=== PATIENT | male | born 1985 | race Caucasian/White ===

== ENCOUNTER 2017-04-13 19:11 | Emergency (ER) | payer OTHER ==
[2017-04-13 19:19] VITALS: TEMP 98.8
--- NOTE | 2017-04-13 19:47 | EDPHY ---
H & P Stated Complaint: c/o intermittent L sided cp x several weeks, pt says more consitent x 2 day Time Seen by Provider: 04/13/17 19:46 HPI/ROS: CHIEF COMPLAINT: Left-sided chest pain HISTORY OF PRESENT ILLNESS: The patient presents to the ED with several weeks of intermittent left-sided chest pain. The patient states that his symptoms initially were quite sporadic occurring several times a day lasting seconds at a time. Over the past several days he has developed a mild left-sided pleuritic chest pain. The patient denies any exertional chest pain. He denies asymmetric calf pain or swelling. The patient has no significant past medical history. The patient did have some dental work done approximately 2 weeks ago. He does have some intermittent pain in his teeth with the symptoms. The patient denies any significant family history of heart disease. The patient denies cough, congestion or difficulty breathing. The patient denies additional acute complaints. REVIEW OF SYSTEMS: A comprehensive 10 point review of systems is otherwise negative aside from elements mentioned in the history of present illness. Source: Patient Exam Limitations: No limitations - Medical/Surgical History Hx Asthma: No Hx Chronic Respiratory Disease: No Hx Diabetes: No Hx Cardiac Disease: No Hx Renal Disease: No Hx Cirrhosis: No Hx Alcoholism: No Hx HIV/AIDS: No Hx Splenectomy or Spleen Trauma: No Other PMH: adhd - Social History Smoking Status: Never smoked - Physical Exam Exam: General Appearance: Alert, no distress Eyes: Pupils equal and round no pallor or injection ENT, Mouth: Mucous membranes moist Respiratory: There are no retractions, lungs are clear to auscultation Cardiovascular: Regular rate and rhythm Gastrointestinal: Abdomen is soft and nontender, no masses, bowel sounds normal Neurological: A&O, normal motor function, normal sensory exam, normal cranial nerves Skin: Warm and dry, no rashes Musculoskeletal: Neck is supple nontender Extremities: symmetrical, full range of motion Psychiatric: Patient is oriented X 3, there is no agitation Constitutional: Initial Vital Signs Temperature (C) 37.1 C 04/13/17 19:16 Heart Rate 70 04/13/17 19:16 Respiratory Rate 16 04/13/17 19:16 Blood Pressure 136/90 H 04/13/17 19:16 O2 Sat (%) 96 04/13/17 19:16 O2 Delivery Mode Room Air Allergies/Adverse Reactions: No Known Allergies Allergy (Unverified 04/13/17 19:19) Home Medications: Medication Instructions Recorded Concerta 04/13/17 Ritalin 5mg (*) 04/13/17 Medical Decision Making - Diagnostics EKG Interpretation: EKG: Complete interpretation has been separately recorded in the [facility] archive. Summary impression: Sinus rhythm, no ST segment elevation or depression noted. Imaging Results: Imaging Impressions Chest X-Ray 04/13/17 21:01 IMPRESSION: Normal chest x-ray. Chest x-ray PA lateral: Images reviewed by myself, negative for pneumothorax, rib fracture or intrathoracic abnormality. Formal interpretation by Radiology pending. ED Course/Re-evaluation: The patient presents to the ED for evaluation of 2 weeks of atypical chest pain. Over the past several days he has developed some mild pleurisy. The patient has no risk factors for PE or DVT. The patient's D-dimer is negative which I feel adequately excludes pulmonary embolism. In the emergency department, the patient is noted to have a normal EKG without pericarditis or myocarditis. The patient's troponin is within normal limits. The patient's chest x-ray demonstrates no intrathoracic abnormality or evidence of a pneumothorax. At this point time I do feel the patient can manage his symptoms with NSAIDs as an outpatient. I would like the patient to return to the emergency department for any markedly worsening symptoms, exertional chest pain , fever, cough or the development of a rash. Differential Diagnosis: Differential diagnosis considered includes acute coronary syndrome, pulmonary embolism, pneumothorax, pleurisy, costochondritis - Data Points Laboratory Results: Laboratory Results 04/13/17 20:30 04/13/17 20:30 04/13/17 04/13/17 04/13/17 20:30 20:30 20:30 WBC 4.52 10^3/uL 10^3/uL (3.80-9.50) RBC 5.16 10^6/uL 10^6/uL (4.40-6.38) Hgb 16.5 g/dL g/dL (13.7-17.5) Hct 45.8 % % (40.0-51.0) MCV 88.8 fL fL (81.5-99.8) MCH 32.0 pg pg (27.9-34.1) MCHC 36.0 g/dL g/dL (32.4-36.7) RDW 11.8 % % (11.5-15.2) Plt Count 186 10^3/uL 10^3/uL (150-400) MPV 9.3 fL fL (8.7-11.7) Neut % (Auto) 54.2 % % (39.3-74.2) Lymph % (Auto) 34.3 % % (15.0-45.0) [place] % (Auto) 9.1 % % (4.5-13.0) Eos % (Auto) 0.9 % % (0.6-7.6) Baso % (Auto) 1.1 % % (0.3-1.7) Nucleat RBC Rel Count 0.0 % % (0.0-0.2) Absolute Neuts (auto) 2.45 10^3/uL 10^3/uL (1.70-6.50) Absolute Lymphs (auto) 1.55 10^3/uL 10^3/uL (1.00-3.00) Absolute Monos (auto) 0.41 10^3/uL 10^3/uL (0.30-0.80) Absolute Eos (auto) 0.04 10^3/uL 10^3/uL (0.03-0.40) Absolute Basos (auto) 0.05 10^3/uL 10^3/uL (0.02-0.10) Absolute Nucleated RBC 0.00 10^3/uL 10^3/uL (0-0.01) Immature Gran % 0.4 % % (0.0-1.1) Immature Gran # 0.02 10^3/uL 10^3/uL (0.00-0.10) D-Dimer < 0.27 ug/mLFEU ug/mLFEU (0.00-0.50) Sodium 140 mEq/L mEq/L (134-144) Potassium 3.9 mEq/L mEq/L (3.5-5.2) Chloride 102 mEq/L mEq/L (97-110) Carbon Dioxide 23 mEq/l mEq/l (22-31) Anion Gap 15 mEq/L mEq/L (8-16) BUN 14 mg/dL mg/dL (7-23) Creatinine 0.8 mg/dL mg/dL (0.7-1.3) Estimated GFR > 60 Glucose 87 mg/dL mg/dL (70-100) Calcium 9.7 mg/dL mg/dL (8.5-10.4) Troponin I < 0.012 ng/mL ng/mL (0.000-0.034) TSH Pending Departure - Departure Disposition: Home, Routine, Self-Care Clinical Impression: Chest pain Condition: Good Instructions: Chest Pain (ED) Additional Instructions: 1. Take Ibuprofen or Motrin 600 mg by mouth three times a day. 2. Please return to the emergency department for any worsening chest pain, exertional chest pain, fever, difficulty breathing or other concerns. 3. Please schedule a follow-up appointment with your primary care provider or the infrastructure design engineer you have been referred to for any symptoms which persists past 2-3 days. Referrals: EVA VICENTE [Other] - As per Instructions Mikhail Higgins MD [Medical Doctor] - As per Instructions
--- NOTE | 2017-04-13 20:04 | CPEKG ---
Heart Rate: 62 RR Interval: 968 P-R Interval: 160 QRSD Interval: 88 QT Interval: 388 QTC Interval: 394 P [place]: 32 QRS [place]: 33 T Wave [place]: 20 EKG Severity - NORMAL ECG - EKG Impression: SINUS RHYTHM Electronically Signed By: Danilo Porter 13-Apr-2017 21:03:27
[2017-04-13 20:40] LABS: % IMMATURE GRANULYOCYTES 0.4 % (0.0-1.1); ABSOLUTE IMMATURE GRANULOCYTES 0.02 10^3/uL (0.00-0.10); ADD DIFF? NO; ADD MORPH? NO; ADD SCAN? NO; ATYPICAL LYMPHOCYTE FLAG 10 (0-99); FRAGMENT RBC FLAG 0 (0-99); HEMATOCRIT 45.8 % (40.0-51.0); HEMOGLOBIN 16.5 g/dL (13.7-17.5); LEFT SHIFT FLG 0 (0-99); LIPEMIA HEMOLYSIS FLAG 90 (0-99); MEAN CELL VOLUME 88.8 fL (81.5-99.8); MEAN PLATELET VOLUME 9.3 fL (8.7-11.7); PLATELET CLUMPS FLAG 20 (0-99); PLATELET COUNT 186 10^3/uL (150-400); RED BLOOD CELL COUNT 5.16 10^6/uL (4.40-6.38); RED CELL DISTRIBUTION WIDTH 11.8 % (11.5-15.2)
[2017-04-13 20:56] LABS: ANION GAP 15 mEq/L (8-16); CALCIUM 9.7 mg/dL (8.5-10.4); CARBON DIOXIDE 23 mEq/l (22-31); CHLORIDE 102 mEq/L (97-110); CREATININE 0.8 mg/dL (0.7-1.3); GLOMERULAR FILTRATION RATE > 60; GLUCOSE 87 mg/dL (70-100); POTASSIUM 3.9 mEq/L (3.5-5.2); SODIUM 140 mEq/L (134-144)
[2017-04-13] MEDS ORDERED: KETOROLAC 30 MG/1 ML SDV IVP ONE (21:04)
[2017-04-13 21:06] LABS: TROPONIN I < 0.012 ng/mL (0.000-0.034)
[2017-04-13 21:30] VITALS: BP 118/76; PULSE 71; RESP 18; O2SAT 95
== END 2017-04-13 21:30 | disposition home or self-care (01) ==
DX: R07.9 Chest pain, unspecified (principal)
CPT/HCPCS: 96374; J1885

== ENCOUNTER 2019-01-11 14:13 | Emergency (ER) | payer OTHER ==
--- NOTE | 2019-01-11 14:25 | EDPHY ---
H & P Stated Complaint: abd bloating Time Seen by Provider: 01/11/19 14:24 HPI/ROS: CHIEF COMPLAINT: Upper abdominal pain, bloating, loose stool HISTORY OF PRESENT ILLNESS: The patient presents to the ED with a several day history of increasing upper abdominal pain which is worsened with eating. The patient reports associated loose stool and bloating. The patient had been seen at urgent care prior to his referral to the emergency department he was given a GI cocktail with some improvement of his symptoms. The patient denies significant alcohol or NSAID usage. He denies any recent travel outside the [place]. The patient denies any melena. The patient denies prior history of GI distress. He denies any respiratory symptoms. He complains of mild epigastric and left upper quadrant pain currently. REVIEW OF SYSTEMS: A comprehensive 10 point review of systems is otherwise negative aside from elements mentioned in the history of present illness. Source: Patient Exam Limitations: No limitations - Personal History Current Tetanus/Diphtheria Vaccine: Yes Current Tetanus Diphtheria and Acellular Pertussis (TDAP): Yes - Medical/Surgical History Hx Asthma: No Hx Chronic Respiratory Disease: No Hx Diabetes: No Hx Cardiac Disease: No Hx Renal Disease: No Hx Cirrhosis: No Hx Alcoholism: No Hx HIV/AIDS: No Hx Splenectomy or Spleen Trauma: No Other PMH: adhd - Social History Smoking Status: Never smoked - Physical Exam Exam: General Appearance: Alert, no distress Eyes: Pupils equal and round no pallor or injection ENT, Mouth: Mucous membranes moist Respiratory: There are no retractions, lungs are clear to auscultation Cardiovascular: Regular rate and rhythm Gastrointestinal: Minimal epigastric tenderness to palpation, no peritoneal signs Neurological: 5/5 strength all 4 extremities Skin: Warm and dry, no rashes Musculoskeletal: Neck is supple nontender Extremities: symmetrical, full range of motion Constitutional: Initial Vital Signs Temperature (C) 37.1 C 01/11/19 14:20 Heart Rate 77 01/11/19 14:20 Respiratory Rate 16 01/11/19 14:20 Blood Pressure 125/87 H 01/11/19 14:20 O2 Sat (%) 95 01/11/19 14:20 O2 Delivery Mode Room Air Allergies/Adverse Reactions: No Known Allergies Allergy (Unverified 01/11/19 14:20) Home Medications: Medication Instructions Recorded [facility] 04/13/17 Medical Decision Making - Diagnostics Imaging Results: Imaging Impressions Abdomen Ultrasound 01/11/19 14:30 Impression: Cholecystitis with either an adherent stone or 4 mm gallbladder polyp. Results called to Dr. Valentín Porter at 3:03 PM ED Course/Re-evaluation: The patient presents the ED for postprandial pain, loose stools and bloating. The patient had minimal epigastric tenderness and complains primarily of left upper quadrant pain which improved with a GI cocktail. The patient's laboratory studies are unremarkable. The patient did undergo an ultrasound which demonstrated hypervascularity to the gallbladder without gallbladder wall thickening, fluid or other acute findings. I re-evaluated the patient at 3:00 p.m. And he is now asymptomatic. He has no right upper quadrant tenderness to palpation and I doubt cholecystitis based upon his physical exam. I explained to him his ultrasound findings and return precautions. I do believe he is most likely having gastritis on will recommend that he begins taking Maalox and using ranitidine as needed. Differential Diagnosis: Differential diagnosis considered includes gastritis, peptic ulcer disease, pancreatitis, cholecystitis - Data Points Laboratory Results: Laboratory Results 01/11/19 14:30 01/11/19 14:30 01/11/19 01/11/19 14:30 14:30 WBC 5.38 10^3/uL 10^3/uL (3.80-9.50) RBC 5.56 10^6/uL 10^6/uL (4.40-6.38) Hgb 17.6 g/dL H g/dL (13.7-17.5) Hct 49.3 % % (40.0-51.0) MCV 88.7 fL fL (81.5-99.8) MCH 31.7 pg pg (27.9-34.1) MCHC 35.7 g/dL g/dL (32.4-36.7) RDW 12.1 % % (11.5-15.2) Plt Count 254 10^3/uL 10^3/uL (150-400) MPV 9.4 fL fL (8.7-11.7) Neut % (Auto) 61.9 % % (39.3-74.2) Lymph % (Auto) 25.8 % % (15.0-45.0) [place] % (Auto) 9.9 % % (4.5-13.0) Eos % (Auto) 1.3 % % (0.6-7.6) Baso % (Auto) 0.7 % % (0.3-1.7) Nucleat RBC Rel Count 0.0 % % (0.0-0.2) Absolute Neuts (auto) 3.33 10^3/uL 10^3/uL (1.70-6.50) Absolute Lymphs (auto) 1.39 10^3/uL 10^3/uL (1.00-3.00) Absolute Monos (auto) 0.53 10^3/uL 10^3/uL (0.30-0.80) Absolute Eos (auto) 0.07 10^3/uL 10^3/uL (0.03-0.40) Absolute Basos (auto) 0.04 10^3/uL 10^3/uL (0.02-0.10) Absolute Nucleated RBC 0.00 10^3/uL 10^3/uL (0-0.01) Immature Gran % 0.4 % % (0.0-1.1) Immature Gran # 0.02 10^3/uL 10^3/uL (0.00-0.10) Sodium 139 mEq/L mEq/L (135-145) Potassium 4.6 mEq/L mEq/L (3.5-5.2) Chloride 109 mEq/L mEq/L (97-110) Carbon Dioxide 16 mEq/l L mEq/l (22-31) Anion Gap 14 mEq/L mEq/L (6-14) BUN 10 mg/dL mg/dL (7-23) Creatinine 0.8 mg/dL mg/dL (0.7-1.3) Estimated GFR > 60 Glucose 101 mg/dL H mg/dL (70-100) Calcium 9.8 mg/dL mg/dL (8.5-10.4) Total Bilirubin 2.5 mg/dL H mg/dL (0.1-1.4) Conjugated Bilirubin 0.1 mg/dL mg/dL (0.0-0.5) Unconjugated Bilirubin 2.4 mg/dL H mg/dL (0.0-1.1) AST 28 IU/L IU/L (17-59) ALT 47 IU/L IU/L (21-72) Alkaline Phosphatase 59 IU/L IU/L (38-126) Total Protein 8.1 g/dL g/dL (6.3-8.2) Albumin 5.2 g/dL H g/dL (3.5-5.0) Lipase 125 IU/L IU/L (23-300) Medications Given: Discontinued Medications Sodium Chloride (Ns) 1,000 mls @ 0 mls/hr IV EDNOW ONE; Wide Open PRN Reason: Protocol Stop: 01/11/19 14:30 Last Admin: 01/11/19 14:55 Dose: 1,000 mls Departure - Departure Disposition: Home, Routine, Self-Care Clinical Impression: Abdominal pain Qualifiers: Abdominal location: left upper quadrant Qualified Code(s): R10.12 - Left upper quadrant pain Condition: Good Instructions: Gastritis (ED) Additional Instructions: 1. Please begin taking Zantac 150 mg twice a day. You may also use Maalox as needed. 2. Return to the ED for worsening abdominal pain, uncontrolled vomiting, fever, any pain or discomfort which is persistent in the right upper quadrant under your ribs as this may be the sign of an infected gallbladder. Referrals: EVA VICENTE [Other] - As per Instructions
[2019-01-11] MEDS ORDERED: NS 1,000 ML IV ONE (14:29)
[2019-01-11 14:46] LABS: PLATELET COUNT 254 10^3/uL (150-400)
[2019-01-11 15:46] VITALS: BP 122/85
== END 2019-01-11 15:46 | disposition home or self-care (01) ==
DX: R10.12 Left upper quadrant pain (principal); E86.9 Volume depletion, unspecified